=== PATIENT | female | born 1985 | race Caucasian/White ===

== ENCOUNTER 2024-06-13 21:33 | Emergency (ER) | payer OTHER ==
[~2024-06-13] VITALS: Ht 170.2 cm; Wt 81.6 kg
[2024-06-13 21:38] VITALS: BP 120/74; PULSE 89; RESP 18; TEMP 98.1; O2SAT 94
== END 2024-06-13 23:15 | disposition home or self-care (01) ==
LOC: MED 21:33
DX: T23.271A Burn of second degree of right wrist, initial encounter (principal); S40.011A Contusion of right shoulder, initial encounter; S50.312A Abrasion of left elbow, initial encounter; Z98.890 Other specified postprocedural states; Z88.2 Allergy status to sulfonamides; V89.2XXA Person injured in unspecified motor-vehicle accident, traffic, initial encounter; Y93.89 Activity, other specified; Y92.410 Unspecified street and highway as the place of occurrence of the external cause; Y99.8 Other external cause status
CPT/HCPCS: 99283